=== PATIENT | male | born 1990 | race Caucasian/White ===

== ENCOUNTER 2018-12-16 00:25 | Emergency (ER) | payer MEDICAID, OTHER ==
[~2018-12-16] VITALS: Ht 180.3 cm; Wt 61.0 kg
[2018-12-16 00:31] VITALS: BP 133/87
[2018-12-16] MEDS ORDERED: PENI250T2 PO (00:39)
[2018-12-16] MEDS ORDERED: NAPR-56 PO (00:39)
== END 2018-12-16 00:49 | disposition home or self-care (01) ==
LOC: ER 00:25
DX: K00.7 Teething syndrome (principal); K08.89 Other specified disorders of teeth and supporting structures; Z79.899 Other long term (current) drug therapy
CPT/HCPCS: 99283

== ENCOUNTER 2019-03-28 05:40 | Emergency (ER) | payer MEDICAID, OTHER ==
[~2019-03-28] VITALS: Ht 180.3 cm; Wt 60.2 kg
[2019-03-28] MEDS ORDERED: acetaminophen 325mg tablet PO ONE (05:55)
[2019-03-28] MEDS ORDERED: normal saline 1000ML IV soln IV ONE (06:00)
[2019-03-28] MEDS ORDERED: ketorolac tromethamine 15mg/ml inj. IV ONE (06:20)
[2019-03-28] MEDS ORDERED: acetaminophen w/codeine (30MG) #3 tablet PO ONE (06:20)
[2019-03-28 07:33] LABS: BASOPHILS # (AUTO) 0.1 X10'3 (0-0.2); BASOPHILS % (AUTO) 0.6 % (0-1); EOSINOPHILS % (AUTO) 0.1 % (0-6); HEMATOCRIT 48.9 % (42.0-52.0); HEMOGLOBIN 17.2 g/dl (14.0-17.9); LYMPHOCYTES # (AUTO) 0.8 X10'3 (1.1-4.8); LYMPHOCYTES % (AUTO) 7.7 % (21-51); MEAN CORPUSCULAR HEMOGLOBIN 35.5 PG (27.0-31.0); MEAN CORPUSCULAR HGB CONC 35.2 g/dL (33.0-36.5); MEAN PLATELET VOLUME 8.4 FL (7.4-10.4); MONOCYTES # (AUTO) 1.1 X10'3 (0-0.9); MONOCYTES % (AUTO) 10.9 % (2-12); NEUTROPHILS # (AUTO) 7.9 X10'3 (1.8-7.7); NEUTROPHILS % (AUTO) 80.7 % (42-75); PLATELET COUNT 157 X10'3 (140-440); RED BLOOD COUNT 4.84 X10'6 (4.70-6.10); RED CELL DISTRIBUTION WIDTH 12.2 % (11.5-14.5); WHITE BLOOD COUNT 9.8 X10'3 (4.5-11.0)
[2019-03-28 07:35] LABS: CLARITY,URINE CLEAR (Clear); GLUCOSE, URINE NEGATIVE (Neg); KETONES,URINE 15 mg/dl (Neg); LEUKOCYTE ESTERASE ,URINE NEGATIVE (Neg); NITRITES, URINE NEGATIVE (Neg); OCCULT BLOOD,URINE NEGATIVE (Neg); PROTEIN,URINE TRACE mg/dl (Neg)
[2019-03-28 07:36] LABS: COLOR,URINE DARK YELLOW (Yellow); UA COLLECTION TYPE URINAL
[2019-03-28 07:41] LABS: AMORPHOUS URATES 1+; BACTERIA,URINE NONE SEEN /HPF (Neg); FINE GRANULAR CAST 0-3 /LPF (NEGATIVE); HYALINE CASTS 0-3 /LPF (NEGATIVE); MUCUS STRANDS MODERATE /LPF (Neg); RBC,URINE 0-2 /HPF (0-2); SQUAMOUS EPITHELIAL CELL,UR FEW /LPF (FEW); WBC,URINE 0-4 /HPF (0-4)
[2019-03-28 07:48] LABS: ALANINE AMINOTRANSFERASE 22 U/L (12-78); ALBUMIN 3.8 G/DL (3.4-5.0); ALBUMIN/GLOBULIN RATIO 1.1 (1.1-1.5); ALKALINE PHOSPHATASE 82 IU/L (46-116); ANION GAP 6 (8-16); ASPARTATE AMINO TRANSFERASE 21 U/L (10-37); BILIRUBIN,TOTAL 0.8 MG/DL (0.1-1.0); BLOOD UREA NITROGEN 11 MG/DL (7-18); BUN/CREATININE RATIO 10.8 (5.4-32.0); CALCIUM 8.5 MG/DL (8.5-10.1); CHLORIDE 100 MMOL/L (99-107); CREATININE 1.02 MG/DL (0.60-1.10); GLUCOSE 86 MG/DL (70-104); MAGNESIUM 1.8 MG/DL (1.5-2.4); SODIUM 136 MMOL/L (135-145); TOTAL CARBON DIOXIDE 29.8 MMOL/L (24-32); TOTAL PROTEIN 7.2 G/DL (6.4-8.2); eGFR 87 ML/MIN
[2019-03-28 07:50] LABS: POTASSIUM 4.2 MMOL/L (3.5-5.1)
[2019-03-28 07:56] LABS: URINE AMPHETAMINE SCREEN POSITIVE (Neg); URINE BARBITUATE SCREEN NEGATIVE (Neg); URINE BENZODIAZEPINES SCREEN NEGATIVE (Neg); URINE CANNABINOID SCREEN NEGATIVE (Neg); URINE COCAINE SCREEN NEGATIVE (Neg); URINE METHADONE SCREEN NEGATIVE (Neg); URINE OPIATE SCREEN NEGATIVE (Neg); URINE PHENCYCLIDINE SCREEN NEGATIVE (Neg)
[2019-03-28] MEDS ORDERED: normal saline 1000ml 1,000 ML IV ONE (08:50)
[2019-03-28 09:06] VITALS: BP 109/58
--- NOTE | 2019-03-28 09:07 | NUR ---
pt. refused to have flu swab done, aware.
== END 2019-03-28 09:07 | disposition home or self-care (01) ==
LOC: ER 05:41
DX: R50.9 Fever, unspecified (principal); B97.89 Other viral agents as the cause of diseases classified elsewhere; F17.200 Nicotine dependence, unspecified, uncomplicated; F15.10 Other stimulant abuse, uncomplicated; R41.0 Disorientation, unspecified; Z98.890 Other specified postprocedural states
CPT/HCPCS: 36415; 71046; 80053; 80305; 81001; 83735; 85025; 87081; 87880; 96361; 96374; 99284; J1885; J7030; J7040

== ENCOUNTER 2019-12-13 09:58 | Emergency (ER) | payer MEDICAID ==
--- NOTE | 2019-12-13 10:29 | NUR ---
Patient's rectal area not seen at this time. Will assess with MD at bedside.
[2019-12-13] MEDS ORDERED: aspirin 81mg tab.chew PO ONE (10:45)
[2019-12-13] MEDS ORDERED: LORazepam 2 mg/ml vial IV ONE (10:45)
[2019-12-13 11:18] LABS: BASOPHILS # (AUTO) 0.1 X10'3 (0-0.2); BASOPHILS % (AUTO) 1.2 % (0-1); EOSINOPHILS # (AUTO) 0.1 X10'3 (0-0.9); EOSINOPHILS % (AUTO) 2.1 % (0-6); HEMATOCRIT 46.1 % (42.0-52.0); HEMOGLOBIN 15.9 g/dl (14.0-17.9); LYMPHOCYTES # (AUTO) 1.5 X10'3 (1.1-4.8); LYMPHOCYTES % (AUTO) 23.9 % (21-51); MEAN CORPUSCULAR HEMOGLOBIN 34.9 PG (27.0-31.0); MEAN CORPUSCULAR HGB CONC 34.6 g/dL (33.0-36.5); MEAN PLATELET VOLUME 7.7 FL (7.4-10.4); MONOCYTES # (AUTO) 0.4 X10'3 (0-0.9); MONOCYTES % (AUTO) 6.1 % (2-12); NEUTROPHILS # (AUTO) 4.1 X10'3 (1.8-7.7); NEUTROPHILS % (AUTO) 66.7 % (42-75); PLATELET COUNT 191 X10'3 (140-440); RED BLOOD COUNT 4.56 X10'6 (4.70-6.10); WHITE BLOOD COUNT 6.1 X10'3 (4.5-11.0)
[2019-12-13 11:26] LABS: PARTIAL THROMBOPLASTIN TIME 27 SECONDS (22-32)
[2019-12-13 11:28] LABS: ALANINE AMINOTRANSFERASE 19 U/L (12-78); ALBUMIN 3.8 G/DL (3.4-5.0); ALBUMIN/GLOBULIN RATIO 1.2 (1.1-1.5); ALKALINE PHOSPHATASE 72 IU/L (46-116); ANION GAP 6 (8-16); ASPARTATE AMINO TRANSFERASE 16 U/L (10-37); BILIRUBIN,TOTAL 0.6 MG/DL (0.1-1.0); BLOOD UREA NITROGEN 10 MG/DL (7-18); BUN/CREATININE RATIO 10.9 (5.4-32.0); CALCIUM 8.1 MG/DL (8.5-10.1); CHLORIDE 103 MMOL/L (99-107); CREATININE 0.92 MG/DL (0.60-1.10); GLUCOSE 108 MG/DL (70-104); POTASSIUM 3.6 MMOL/L (3.5-5.1); SODIUM 139 MMOL/L (135-145); TOTAL CARBON DIOXIDE 29.7 MMOL/L (24-32); TOTAL PROTEIN 6.9 G/DL (6.4-8.2); eGFR > 90 ML/MIN
[2019-12-13 11:35] LABS: MAGNESIUM 1.9 MG/DL (1.5-2.4)
[2019-12-13] MEDS ORDERED: HYDR25SU32 RC (11:38)
[2019-12-13] MEDS ORDERED: POLY17PO10 PO (11:38)
[2019-12-13 13:26] VITALS: BP 120/80
== END 2019-12-13 13:28 | disposition home or self-care (01) ==
LOC: ER 09:59
DX: K64.4 Residual hemorrhoidal skin tags (principal); K59.00 Constipation, unspecified; R42 Dizziness and giddiness; R07.89 Other chest pain; F15.90 Other stimulant use, unspecified, uncomplicated; Z98.890 Other specified postprocedural states; Z79.899 Other long term (current) drug therapy
CPT/HCPCS: 36415; 71045; 80053; 83735; 83880; 84484; 85025; 85610; 85730; 93005; 96374; 99285; J2060

== ENCOUNTER 2020-01-04 16:34 | Emergency (ER) | payer MEDICAID ==
[~2020-01-04] VITALS: Ht 180.3 cm; Wt 64.8 kg
[~2020-01-04 16:34] MED LIST: HYDR25SU32 RC; POLY17PO10 PO
[2020-01-04 17:11] LABS: BASOPHILS # (AUTO) 0.1 X10'3 (0-0.2); BASOPHILS % (AUTO) 0.8 % (0-1); EOSINOPHILS # (AUTO) 0.1 X10'3 (0-0.9); EOSINOPHILS % (AUTO) 1.5 % (0-6); HEMATOCRIT 47.4 % (42.0-52.0); HEMOGLOBIN 16.8 g/dl (14.0-17.9); LYMPHOCYTES # (AUTO) 1.6 X10'3 (1.1-4.8); LYMPHOCYTES % (AUTO) 20.8 % (21-51); MEAN CORPUSCULAR HEMOGLOBIN 35.4 PG (27.0-31.0); MEAN CORPUSCULAR HGB CONC 35.5 g/dL (33.0-36.5); MEAN CORPUSCULAR VOLUME 99.8 FL (78-98); MEAN PLATELET VOLUME 7.7 FL (7.4-10.4); MONOCYTES # (AUTO) 0.6 X10'3 (0-0.9); MONOCYTES % (AUTO) 8.4 % (2-12); NEUTROPHILS # (AUTO) 5.3 X10'3 (1.8-7.7); NEUTROPHILS % (AUTO) 68.5 % (42-75); PLATELET COUNT 222 X10'3 (140-440); RED BLOOD COUNT 4.75 X10'6 (4.70-6.10); RED CELL DISTRIBUTION WIDTH 12.7 % (11.5-14.5); WHITE BLOOD COUNT 7.7 X10'3 (4.5-11.0)
[2020-01-04 17:27] LABS: ALANINE AMINOTRANSFERASE 70 U/L (12-78); ALBUMIN 4.2 G/DL (3.4-5.0); ALBUMIN/GLOBULIN RATIO 1.2 (1.1-1.5); ALKALINE PHOSPHATASE 71 IU/L (46-116); ANION GAP 9 (8-16); ASPARTATE AMINO TRANSFERASE 27 U/L (10-37); BILIRUBIN,TOTAL 1.1 MG/DL (0.1-1.0); BLOOD UREA NITROGEN 12 MG/DL (7-18); BUN/CREATININE RATIO 13.6 (5.4-32.0); CALCIUM 8.9 MG/DL (8.5-10.1); CHLORIDE 101 MMOL/L (99-107); CREATININE 0.88 MG/DL (0.60-1.10); GLUCOSE 108 MG/DL (70-104); POTASSIUM 3.7 MMOL/L (3.5-5.1); SODIUM 140 MMOL/L (135-145); TOTAL CARBON DIOXIDE 30.4 MMOL/L (24-32); TOTAL PROTEIN 7.7 G/DL (6.4-8.2); eGFR > 90 ML/MIN
[2020-01-04 18:54] LABS: ETHANOL < 0.010 GM/DL (0.0-0.010)
[2020-01-04 18:56] LABS: PARTIAL THROMBOPLASTIN TIME 28 SECONDS (22-32)
[2020-01-04 19:00] LABS: URINE AMPHETAMINE SCREEN POSITIVE (Neg); URINE BARBITUATE SCREEN NEGATIVE (Neg); URINE BENZODIAZEPINES SCREEN NEGATIVE (Neg); URINE CANNABINOID SCREEN NEGATIVE (Neg); URINE COCAINE SCREEN NEGATIVE (Neg); URINE METHADONE SCREEN NEGATIVE (Neg); URINE OPIATE SCREEN NEGATIVE (Neg); URINE PHENCYCLIDINE SCREEN NEGATIVE (Neg)
[2020-01-04] MEDS ORDERED: diazepam 5mg tablet PO ONE (19:45)
[2020-01-04] MEDS ORDERED: aspirin 81mg tab.chew PO ONE (19:45)
[2020-01-04 19:55] VITALS: BP 138/92
== END 2020-01-04 19:57 | disposition home or self-care (01) ==
LOC: ER 16:35
DX: R07.89 Other chest pain (principal); R53.83 Other fatigue; R61 Generalized hyperhidrosis; E86.0 Dehydration; F15.10 Other stimulant abuse, uncomplicated; Z98.890 Other specified postprocedural states; Z79.899 Other long term (current) drug therapy
CPT/HCPCS: 36415; 71045; 80053; 80305; 80320; 83735; 83880; 84484; 85025; 85610; 85730; 93005; 99285

== ENCOUNTER 2020-01-13 14:16 | Emergency (ER) | payer MEDICAID ==
[~2020-01-13] VITALS: Ht 180.3 cm; Wt 61.4 kg
[2020-01-13 14:35] VITALS: BP 117/77
== END 2020-01-13 15:02 | disposition home or self-care (01) ==
LOC: ER 14:16
DX: J06.9 Acute upper respiratory infection, unspecified (principal); Z20.828 Contact with and (suspected) exposure to other viral communicable diseases; F15.90 Other stimulant use, unspecified, uncomplicated; Z79.899 Other long term (current) drug therapy
CPT/HCPCS: 36415; 87635; 99283

== ENCOUNTER 2020-01-15 02:57 | Emergency (ER) | payer MEDICAID ==
[~2020-01-15] VITALS: Ht 180.3 cm; Wt 61.4 kg
[~2020-01-15 02:57] MED LIST changes: -POLY17PO10 PO
[2020-01-15 03:15] VITALS: BP 127/76
[2020-01-16] MEDS ORDERED: PRED20TA PO (17:49)
[2020-01-16] MEDS ORDERED: CEPH250T PO (17:50)
== END 2020-01-15 03:35 | disposition home or self-care (01) ==
LOC: ER 02:57
DX: R11.0 Nausea (principal); R10.84 Generalized abdominal pain; F17.200 Nicotine dependence, unspecified, uncomplicated; F15.90 Other stimulant use, unspecified, uncomplicated; Z98.890 Other specified postprocedural states; Z79.899 Other long term (current) drug therapy
CPT/HCPCS: 99281

== ENCOUNTER 2020-01-16 17:18 | Emergency (ER) | payer MEDICAID ==
[~2020-01-16] VITALS: Ht 180.3 cm; Wt 65.0 kg
[2020-01-16] MEDS ORDERED: PRED20TA PO (17:49)
[2020-01-16] MEDS ORDERED: CEPH250T PO (17:50)
[2020-01-16 18:03] VITALS: BP 115/81
== END 2020-01-16 18:05 | disposition home or self-care (01) ==
LOC: ER 17:18
DX: S50.861A Insect bite (nonvenomous) of right forearm, initial encounter (principal); L03.113 Cellulitis of right upper limb; F15.90 Other stimulant use, unspecified, uncomplicated; Z98.890 Other specified postprocedural states; Z79.2 Long term (current) use of antibiotics; Z79.899 Other long term (current) drug therapy; W57.XXXA Bitten or stung by nonvenomous insect and other nonvenomous arthropods, initial encounter; Y93.89 Activity, other specified; Y92.89 Other specified places as the place of occurrence of the external cause; Y99.8 Other external cause status
CPT/HCPCS: 99283

== ENCOUNTER → 2020-01-18 | Emergency (ER) | payer MEDICAID ==
[~2020-01-18] MED LIST changes: +CEPH250T PO; +PRED20TA PO
--- NOTE | 2020-01-18 17:43 | NUR ---
Called to triage not in lobby
--- NOTE | 2020-01-18 18:07 | NUR ---
CALLED TO TRIAGE FOR THIRD TIME, NOT IN LOBBY.
== END | disposition left against medical advice (07) ==
LOC: ER 16:57
DX: Z00.00 Encounter for general adult medical examination without abnormal findings (principal); Z53.21 Procedure and treatment not carried out due to patient leaving prior to being seen by health care provider

== ENCOUNTER 2020-02-03 12:50 | Emergency (ER) | payer MEDICAID ==
[~2020-02-03] VITALS: Ht 180.3 cm; Wt 65.5 kg
[~2020-02-03 12:50] MED LIST changes: -CEPH250T PO; -PRED20TA PO
[2020-02-03 13:02] VITALS: BP 108/67
== END 2020-02-03 17:24 | disposition left against medical advice (07) ==
LOC: ER 12:51
DX: M54.5 Low back pain (principal); Z53.21 Procedure and treatment not carried out due to patient leaving prior to being seen by health care provider

== ENCOUNTER 2020-02-09 15:38 | Emergency (ER) | payer MEDICAID ==
[~2020-02-09] VITALS: Ht 180.3 cm; Wt 68.1 kg
--- NOTE | 2020-02-09 16:45 | NUR ---
Patient states he is hearing voices and they are telling him to hurt himself. Patient answering all questions. No distress observed. Continue to monitor.
[2020-02-09 16:59] LABS: BASOPHILS % (AUTO) 0.4 % (0-1); EOSINOPHILS # (AUTO) 0.1 X10'3 (0-0.9); EOSINOPHILS % (AUTO) 1.8 % (0-6); HEMATOCRIT 46.2 % (42.0-52.0); HEMOGLOBIN 15.9 g/dl (14.0-17.9); LYMPHOCYTES # (AUTO) 1.3 X10'3 (1.1-4.8); LYMPHOCYTES % (AUTO) 20.7 % (21-51); MEAN CORPUSCULAR HEMOGLOBIN 34.8 PG (27.0-31.0); MEAN CORPUSCULAR HGB CONC 34.3 g/dL (33.0-36.5); MEAN CORPUSCULAR VOLUME 101.4 FL (78-98); MONOCYTES # (AUTO) 0.5 X10'3 (0-0.9); MONOCYTES % (AUTO) 7.3 % (2-12); NEUTROPHILS # (AUTO) 4.5 X10'3 (1.8-7.7); NEUTROPHILS % (AUTO) 69.8 % (42-75); PLATELET COUNT 196 X10'3 (140-440); RED BLOOD COUNT 4.55 X10'6 (4.70-6.10); RED CELL DISTRIBUTION WIDTH 12.3 % (11.5-14.5); WHITE BLOOD COUNT 6.5 X10'3 (4.5-11.0)
[2020-02-09 17:13] LABS: ALANINE AMINOTRANSFERASE 30 U/L (12-78); ALBUMIN 3.8 G/DL (3.4-5.0); ALBUMIN/GLOBULIN RATIO 1.2 (1.1-1.5); ALKALINE PHOSPHATASE 60 IU/L (46-116); ANION GAP 8 (8-16); ASPARTATE AMINO TRANSFERASE 18 U/L (10-37); BILIRUBIN,TOTAL 0.7 MG/DL (0.1-1.0); BLOOD UREA NITROGEN 11 MG/DL (7-18); BUN/CREATININE RATIO 14.5 (5.4-32.0); CALCIUM 8.8 MG/DL (8.5-10.1); CHLORIDE 105 MMOL/L (99-107); CREATININE 0.76 MG/DL (0.60-1.10); GLUCOSE 101 MG/DL (70-104); POTASSIUM 3.7 MMOL/L (3.5-5.1); SODIUM 142 MMOL/L (135-145); TOTAL CARBON DIOXIDE 29.4 MMOL/L (24-32); eGFR > 90 ML/MIN
[2020-02-09 17:23] LABS: ETHANOL < 0.010 GM/DL (0.0-0.010)
[2020-02-09] MEDS ORDERED: LORazepam 1 MG tablet PO PRN (17:30)
--- NOTE | 2020-02-09 17:40 | NUR ---
Patient sitting in bed and having some anxiety. RN called Dr Antonio who will order Ativan.
[2020-02-09 17:50] LABS: CLARITY,URINE CLOUDY (Clear); COLOR,URINE STRAW (Yellow); GLUCOSE, URINE NEGATIVE (Neg); KETONES,URINE NEGATIVE (Neg); LEUKOCYTE ESTERASE ,URINE TRACE (Neg); NITRITES, URINE NEGATIVE (Neg); OCCULT BLOOD,URINE NEGATIVE (Neg); PROTEIN,URINE NEGATIVE (Neg); UROBILINOGEN,URINE 0.2 E.U/dL (0.2-1.0)
[2020-02-09 17:52] LABS: UA COLLECTION TYPE CLN CATCH MIDSTREAM
[2020-02-09 17:59] LABS: URINE AMPHETAMINE SCREEN NEGATIVE (Neg); URINE BARBITUATE SCREEN NEGATIVE (Neg); URINE BENZODIAZEPINES SCREEN NEGATIVE (Neg); URINE CANNABINOID SCREEN NEGATIVE (Neg); URINE COCAINE SCREEN NEGATIVE (Neg); URINE METHADONE SCREEN NEGATIVE (Neg); URINE OPIATE SCREEN NEGATIVE (Neg); URINE PHENCYCLIDINE SCREEN NEGATIVE (Neg)
[2020-02-09 18:20] LABS: MUCUS STRANDS MANY /LPF (Neg); SQUAMOUS EPITHELIAL CELL,UR FEW /LPF (FEW); WBC,URINE 0-4 /HPF (0-4)
[2020-02-09 18:21] LABS: RBC,URINE 0-2 /HPF (0-2)
[2020-02-09 18:22] LABS: AMORPHOUS PHOSPHATES 4+; BACTERIA,URINE NONE SEEN /HPF (Neg)
--- NOTE | 2020-02-09 20:30 | NUR ---
Pt's packet faxed to [facility].
[2020-02-09] MEDS ORDERED: NO HOME MEDS (20:47)
--- NOTE | 2020-02-09 22:01 | NUR ---
Pt is resting comfortably at this time, sleeping with visible rise and fall of respirations. He is in direct line of sight of the nursing station, no sign of distress or pain at this time.
--- NOTE | 2020-02-09 23:38 | NUR ---
Pt is sleeping at this time, in direct line of sight of the nursing station. Does not show signs of pain or discomfort.
--- NOTE | 2020-02-09 23:50 | NUR ---
Spoke to Camila from [facility] and completed preliminary questionaire. Camila reports she will present the patient's case for consideration of admission in the morning and notify [facility] overflow if patient is accepted.
[2020-02-10 06:16] VITALS: BP 108/67
--- NOTE | 2020-02-10 06:24 | NUR ---
Patient sleeping on right side. No distress observed. Continue to monitor.
--- NOTE | 2020-02-10 08:15 | NUR ---
Patient sitting up and eating breakfast. no distress observed. Continue to monitor.
--- NOTE | 2020-02-10 10:55 | NUR ---
Patient's peer next to him got loud. Patient came out of his room anxious and states he is ready to go home. "I'm not crazy." RN explained to patient that he is on a legal hold and can't leave at this time. RN offered patient some Ativan. Patient intially refused but eventually said he would take it with food, which he did. Continue to monitor.
--- NOTE | 2020-02-10 11:25 | NUR ---
breaking primary RN, pt is in the bathroom, no needs at this time
--- NOTE | 2020-02-10 12:53 | NUR ---
Patient reclining in bed. Patient is about to leave to [facility] after lunch. Continue to monitor.
== END 2020-02-10 13:35 ==
LOC: ER 15:39
DX: R45.851 Suicidal ideations (principal); F29 Unspecified psychosis not due to a substance or known physiological condition; R11.0 Nausea; F15.90 Other stimulant use, unspecified, uncomplicated; Z79.899 Other long term (current) drug therapy
CPT/HCPCS: 36415; 80053; 80305; 80320; 81001; 84443; 85025; 99285

== ENCOUNTER 2020-03-07 12:22 | Emergency (ER) | payer MEDICAID ==
[~2020-03-07] VITALS: Ht 180.3 cm; Wt 70.0 kg
[~2020-03-07 12:22] MED LIST changes: -HYDR25SU32 RC; +NO HOME MEDS
[2020-03-07 12:48] VITALS: BP 135/81
[2020-03-07 13:14] LABS: CLARITY,URINE CLOUDY (Clear); GLUCOSE, URINE NEGATIVE (Neg); KETONES,URINE NEGATIVE (Neg); LEUKOCYTE ESTERASE ,URINE NEGATIVE (Neg); NITRITES, URINE NEGATIVE (Neg); OCCULT BLOOD,URINE NEGATIVE (Neg); PH,URINE 7.5 (4.8-8.0); PROTEIN,URINE NEGATIVE (Neg)
[2020-03-07 13:15] LABS: COLOR,URINE DARK YELLOW (Yellow); UA COLLECTION TYPE CLN CATCH MIDSTREAM
[2020-03-07 13:23] LABS: BACTERIA,URINE NONE SEEN /HPF (Neg); RBC,URINE NONE SEEN /HPF (0-2); WBC,URINE 0-4 /HPF (0-4)
[2020-03-07 13:24] LABS: AMORPHOUS PHOSPHATES 4+; MUCUS STRANDS MODERATE /LPF (Neg); SQUAMOUS EPITHELIAL CELL,UR NONE SEEN /LPF (FEW)
[2020-03-07 13:38] LABS: BASOPHILS % (AUTO) 0.7 % (0-1); EOSINOPHILS # (AUTO) 0.1 X10'3 (0-0.9); EOSINOPHILS % (AUTO) 2.9 % (0-6); HEMATOCRIT 47.4 % (42.0-52.0); HEMOGLOBIN 16.5 g/dl (14.0-17.9); LYMPHOCYTES # (AUTO) 1.3 X10'3 (1.1-4.8); LYMPHOCYTES % (AUTO) 28.2 % (21-51); MEAN CORPUSCULAR HEMOGLOBIN 35.2 PG (27.0-31.0); MEAN CORPUSCULAR HGB CONC 34.7 g/dL (33.0-36.5); MEAN CORPUSCULAR VOLUME 101.2 FL (78-98); MEAN PLATELET VOLUME 8.1 FL (7.4-10.4); MONOCYTES # (AUTO) 0.4 X10'3 (0-0.9); MONOCYTES % (AUTO) 8.1 % (2-12); NEUTROPHILS # (AUTO) 2.8 X10'3 (1.8-7.7); NEUTROPHILS % (AUTO) 60.1 % (42-75); PLATELET COUNT 194 X10'3 (140-440); RED BLOOD COUNT 4.68 X10'6 (4.70-6.10); RED CELL DISTRIBUTION WIDTH 12.2 % (11.5-14.5); WHITE BLOOD COUNT 4.7 X10'3 (4.5-11.0)
[2020-03-07 13:48] LABS: ALANINE AMINOTRANSFERASE 35 U/L (12-78); ALBUMIN 3.9 G/DL (3.4-5.0); ALBUMIN/GLOBULIN RATIO 1.2 (1.1-1.5); ALKALINE PHOSPHATASE 65 IU/L (46-116); ANION GAP 0 (8-16); ASPARTATE AMINO TRANSFERASE 22 U/L (10-37); BILIRUBIN,TOTAL 0.9 MG/DL (0.1-1.0); BLOOD UREA NITROGEN 12 MG/DL (7-18); BUN/CREATININE RATIO 13.6 (5.4-32.0); CALCIUM 9.2 MG/DL (8.5-10.1); CHLORIDE 108 MMOL/L (99-107); CREATININE 0.88 MG/DL (0.60-1.10); GLUCOSE 98 MG/DL (70-104); POTASSIUM 4.1 MMOL/L (3.5-5.1); SODIUM 140 MMOL/L (135-145); TOTAL CARBON DIOXIDE 31.8 MMOL/L (24-32); TOTAL PROTEIN 7.1 G/DL (6.4-8.2); eGFR > 90 ML/MIN
== END 2020-03-07 14:07 | disposition home or self-care (01) ==
LOC: ER 12:23
DX: R10.32 Left lower quadrant pain (principal); R19.7 Diarrhea, unspecified; R11.0 Nausea; F15.90 Other stimulant use, unspecified, uncomplicated; Z98.890 Other specified postprocedural states
CPT/HCPCS: 36415; 80053; 81001; 85025; 99283

== ENCOUNTER 2020-03-25 17:34 | Emergency (ER) | payer MEDICAID ==
[~2020-03-25] VITALS: Ht 180.3 cm; Wt 68.5 kg
[2020-03-25 17:38] VITALS: BP 124/52
[2020-03-25] MEDS ORDERED: ESCI5TAB PO (23:11)
[2020-03-26] MEDS ORDERED: NO HOME MEDS (22:39)
== END 2020-03-25 19:56 | disposition home or self-care (01) ==
LOC: ER 17:35
DX: F41.9 Anxiety disorder, unspecified (principal); F32.9 Major depressive disorder, single episode, unspecified; F17.200 Nicotine dependence, unspecified, uncomplicated; F15.10 Other stimulant abuse, uncomplicated; Z87.19 Personal history of other diseases of the digestive system
CPT/HCPCS: 99281

== ENCOUNTER 2020-03-25 22:17 | Emergency (ER) | payer MEDICAID ==
[~2020-03-25] VITALS: Ht 180.3 cm; Wt 68.0 kg
--- NOTE | 2020-03-25 22:56 | NUR ---
AT TIME OF TRIAGE PT WAS QUESTIONED ABOUT WEAPONS AND ADMITTED TO HAVE A KNIFE. SECURITY WAS CALLED AND LOCKED IT UP AND PT IS AWARE THAT IT WILL BE RETURNED WHEN HE IS DISCHARGED. PT IS COOPERATIVE
[2020-03-25] MEDS ORDERED: ESCI5TAB PO (23:11)
[2020-03-25 23:20] LABS: BASOPHILS # (AUTO) 0.1 X10'3 (0-0.2); BASOPHILS % (AUTO) 0.6 % (0-1); EOSINOPHILS # (AUTO) 0.2 X10'3 (0-0.9); EOSINOPHILS % (AUTO) 2.2 % (0-6); HEMATOCRIT 47.1 % (42.0-52.0); HEMOGLOBIN 16.4 g/dl (14.0-17.9); LYMPHOCYTES % (AUTO) 23.2 % (21-51); MEAN CORPUSCULAR HEMOGLOBIN 35.1 PG (27.0-31.0); MEAN CORPUSCULAR HGB CONC 34.8 g/dL (33.0-36.5); MEAN CORPUSCULAR VOLUME 100.7 FL (78-98); MEAN PLATELET VOLUME 8.4 FL (7.4-10.4); MONOCYTES # (AUTO) 0.6 X10'3 (0-0.9); NEUTROPHILS # (AUTO) 5.8 X10'3 (1.8-7.7); PLATELET COUNT 182 X10'3 (140-440); RED BLOOD COUNT 4.67 X10'6 (4.70-6.10); RED CELL DISTRIBUTION WIDTH 12.2 % (11.5-14.5); WHITE BLOOD COUNT 8.7 X10'3 (4.5-11.0)
[2020-03-25 23:29] LABS: ALANINE AMINOTRANSFERASE 44 U/L (12-78); ALBUMIN/GLOBULIN RATIO 1.3 (1.1-1.5); ALKALINE PHOSPHATASE 67 IU/L (46-116); ANION GAP 9 (8-16); ASPARTATE AMINO TRANSFERASE 24 U/L (10-37); BILIRUBIN,TOTAL 0.7 MG/DL (0.1-1.0); BLOOD UREA NITROGEN 10 MG/DL (7-18); BUN/CREATININE RATIO 12.5 (5.4-32.0); CALCIUM 8.4 MG/DL (8.5-10.1); CHLORIDE 104 MMOL/L (99-107); ETHANOL < 0.010 GM/DL (0.0-0.010); GLUCOSE 113 MG/DL (70-104); POTASSIUM 3.4 MMOL/L (3.5-5.1); SODIUM 140 MMOL/L (135-145); TOTAL CARBON DIOXIDE 27.2 MMOL/L (24-32); TOTAL PROTEIN 7.1 G/DL (6.4-8.2); eGFR > 90 ML/MIN
[2020-03-25 23:30] LABS: URINE AMPHETAMINE SCREEN NEGATIVE (Neg); URINE BARBITUATE SCREEN NEGATIVE (Neg); URINE BENZODIAZEPINES SCREEN NEGATIVE (Neg); URINE CANNABINOID SCREEN NEGATIVE (Neg); URINE COCAINE SCREEN NEGATIVE (Neg); URINE METHADONE SCREEN NEGATIVE (Neg); URINE OPIATE SCREEN NEGATIVE (Neg); URINE PHENCYCLIDINE SCREEN NEGATIVE (Neg)
--- NOTE | 2020-03-26 | NUR ---
Pt is resting in his bed and appears to be asleep.
--- NOTE | 2020-03-26 01:00 | NUR ---
No change. Still asleep, he has just moved positions.
--- NOTE | 2020-03-26 02:00 | NUR ---
No change, still asleep.
--- NOTE | 2020-03-26 03:00 | NUR ---
no change, still asleep.
--- NOTE | 2020-03-26 05:55 | NUR ---
no changes. still asleep
[2020-03-26 06:45] VITALS: BP 104/62
[2020-03-26] MEDS ORDERED: ESCITALOPRAM OXALATE 5 MG TABLET PO SCH (08:00)
--- NOTE | 2020-03-26 09:58 | NUR ---
PT IS SITTING UP EATING BREAKFAST. FOLLOWING COMMANDS, COOPERATIVE, AND ANSWERING QUESTIONS.
[2020-03-26] MEDS ORDERED: NO HOME MEDS (22:39)
== END 2020-03-26 10:36 | disposition home or self-care (01) ==
LOC: ER 22:19
DX: R45.851 Suicidal ideations (principal); F20.9 Schizophrenia, unspecified; R20.0 Anesthesia of skin; R53.1 Weakness; F32.9 Major depressive disorder, single episode, unspecified; F15.90 Other stimulant use, unspecified, uncomplicated; Z98.890 Other specified postprocedural states; Z72.89 Other problems related to lifestyle; Z79.899 Other long term (current) drug therapy
CPT/HCPCS: 36415; 80053; 80305; 80320; 85025; 99284; 99285

== ENCOUNTER 2020-03-26 19:15 | Emergency (ER) | payer MEDICAID ==
[~2020-03-26] VITALS: Ht 172.7 cm; Wt 53.0 kg
[~2020-03-26 19:15] MED LIST changes: +ESCI5TAB PO
[2020-03-26] MEDS ORDERED: ondansetron 4mg rapidly disintigrating tab PO ONE (19:30)
[2020-03-26] MEDS ORDERED: acetaminophen 325mg tablet PO ONE (19:30)
--- NOTE | 2020-03-26 21:09 | NUR ---
pt in bed with covers pulled over head
--- NOTE | 2020-03-26 22:32 | NUR ---
EYES CLOSED RESPIRATIONS EVEN IN BED
[2020-03-26] MEDS ORDERED: NO HOME MEDS (22:39)
--- NOTE | 2020-03-27 01:53 | NUR ---
PT SLEEPING. NO DISTRESS NOTED. WILL CONTINUE TO MONITOR.
--- NOTE | 2020-03-27 03:55 | NUR ---
PT SLEEPING. NO DISTRESS NOTED. WILL CONTINUE TO MONITOR.
--- NOTE | 2020-03-27 09:15 | NUR ---
Pt's thought processes becoming more disturbed AEB his statements "Theyr're out to get me, I can't protect myself aopr my family. Quick, you have to help. They're out there waiting to get me." This change is notable as pt engaged readily and responded appropriately while psychosocial components assessed by this RN about an hour ago. Pt affirmed at that time he hears voices, but they are not currently threatening him or causing distress. Pt denies S/H/I @ this time. Pt reports last meth use "couple months ago. He has social support from mother and grandmother, but is not welcome to live with either of them. Currently he is homeless, couch surfing and staying at the [facility] when able.
[2020-03-27] MEDS ORDERED: LORazepam 1 MG tablet PO ONE (09:20)
[2020-03-27] MEDS: ziprasidone 20mg capsule PO SCH ×2 (09:31→20:21)
--- NOTE | 2020-03-27 14:16 | NUR ---
Vasyl tried to evaluate pt but the pt is too drowsy to have a conversation. informed him that the pt was given Geodon and Ativan about 4 hours ago and he said he will try his evaluation later when the pt is more awake.
--- NOTE | 2020-03-27 15:28 | NUR ---
PT BROUGHT OVER TO ROOM 14 CARRYING HIS LUNCH TRAY. PT EATING NOW ON HIS BED 21. LAB IN TO DRAW HIS BLOOD.
[2020-03-27 15:39] LABS: BASOPHILS % (AUTO) 0.6 % (0-1); EOSINOPHILS # (AUTO) 0.2 X10'3 (0-0.9); EOSINOPHILS % (AUTO) 3.6 % (0-6); HEMATOCRIT 51.7 % (42.0-52.0); MEAN CORPUSCULAR HEMOGLOBIN 35.2 PG (27.0-31.0); MEAN CORPUSCULAR HGB CONC 34.8 g/dL (33.0-36.5); MEAN CORPUSCULAR VOLUME 101.3 FL (78-98); MEAN PLATELET VOLUME 8.3 FL (7.4-10.4); MONOCYTES # (AUTO) 0.4 X10'3 (0-0.9); MONOCYTES % (AUTO) 7.1 % (2-12); NEUTROPHILS % (AUTO) 52.7 % (42-75); PLATELET COUNT 200 X10'3 (140-440); RED BLOOD COUNT 5.11 X10'6 (4.70-6.10); RED CELL DISTRIBUTION WIDTH 12.2 % (11.5-14.5); WHITE BLOOD COUNT 5.7 X10'3 (4.5-11.0)
[2020-03-27 15:53] LABS: ALANINE AMINOTRANSFERASE 49 U/L (12-78); ALBUMIN 4.1 G/DL (3.4-5.0); ALBUMIN/GLOBULIN RATIO 1.2 (1.1-1.5); ALKALINE PHOSPHATASE 73 IU/L (46-116); ANION GAP 6 (8-16); ASPARTATE AMINO TRANSFERASE 28 U/L (10-37); BILIRUBIN,TOTAL 1.3 MG/DL (0.1-1.0); BLOOD UREA NITROGEN 9 MG/DL (7-18); CALCIUM 9.1 MG/DL (8.5-10.1); CHLORIDE 105 MMOL/L (99-107); GLUCOSE 87 MG/DL (70-104); POTASSIUM 4.4 MMOL/L (3.5-5.1); SODIUM 143 MMOL/L (135-145); TOTAL CARBON DIOXIDE 32.5 MMOL/L (24-32); TOTAL PROTEIN 7.5 G/DL (6.4-8.2); eGFR > 90 ML/MIN
[2020-03-27 16:03] LABS: ETHANOL < 0.010 GM/DL (0.0-0.010)
[2020-03-27 17:36] LABS: CLARITY,URINE SLIGHTLY CLOUDY (Clear); GLUCOSE, URINE NEGATIVE (Neg); KETONES,URINE NEGATIVE (Neg); LEUKOCYTE ESTERASE ,URINE NEGATIVE (Neg); NITRITES, URINE NEGATIVE (Neg); OCCULT BLOOD,URINE NEGATIVE (Neg); PROTEIN,URINE NEGATIVE (Neg)
[2020-03-27 17:39] LABS: COLOR,URINE DARK YELLOW (Yellow); UA COLLECTION TYPE VOIDED
[2020-03-27 17:43] LABS: BACTERIA,URINE NONE SEEN /HPF (Neg); MUCUS STRANDS MODERATE /LPF (Neg); RBC,URINE 0-2 /HPF (0-2); SQUAMOUS EPITHELIAL CELL,UR NONE SEEN /LPF (FEW); WBC,URINE 0-4 /HPF (0-4)
[2020-03-27 17:51] LABS: URINE AMPHETAMINE SCREEN NEGATIVE (Neg); URINE BARBITUATE SCREEN NEGATIVE (Neg); URINE BENZODIAZEPINES SCREEN NEGATIVE (Neg); URINE CANNABINOID SCREEN NEGATIVE (Neg); URINE COCAINE SCREEN NEGATIVE (Neg); URINE METHADONE SCREEN NEGATIVE (Neg); URINE OPIATE SCREEN NEGATIVE (Neg); URINE PHENCYCLIDINE SCREEN NEGATIVE (Neg)
[2020-03-28] MEDS: ziprasidone 20mg capsule PO SCH (08:17)
--- NOTE | 2020-03-28 08:20 | NUR ---
UP TO BATHROOM. TOLERATED BREAKFAST WELL AND RETAINED. PATIENT WORRIED ABOUT MISSING COURT ORDERED WORK PROGRAM AND ATTEMPTING TO CONTACT [employer] TO INFORM THAT HE IS IN HOSPITAL ON MH HOLD.
[2020-03-28] MEDS ORDERED: nicotine 14mg patch - 24hr TD SCH (09:45)
[2020-03-28 09:54] LABS: BASOPHILS % (AUTO) 0.8 % (0-1); EOSINOPHILS # (AUTO) 0.1 X10'3 (0-0.9); EOSINOPHILS % (AUTO) 2.6 % (0-6); HEMATOCRIT 48.2 % (42.0-52.0); LYMPHOCYTES # (AUTO) 1.1 X10'3 (1.1-4.8); LYMPHOCYTES % (AUTO) 22.9 % (21-51); MEAN CORPUSCULAR HEMOGLOBIN 35.5 PG (27.0-31.0); MEAN CORPUSCULAR HGB CONC 35.2 g/dL (33.0-36.5); MEAN CORPUSCULAR VOLUME 100.9 FL (78-98); MEAN PLATELET VOLUME 8.1 FL (7.4-10.4); MONOCYTES # (AUTO) 0.3 X10'3 (0-0.9); MONOCYTES % (AUTO) 6.9 % (2-12); NEUTROPHILS # (AUTO) 3.3 X10'3 (1.8-7.7); NEUTROPHILS % (AUTO) 66.8 % (42-75); PLATELET COUNT 187 X10'3 (140-440); RED BLOOD COUNT 4.78 X10'6 (4.70-6.10); RED CELL DISTRIBUTION WIDTH 11.8 % (11.5-14.5)
--- NOTE | 2020-03-28 10:03 | NUR ---
RESTING IN BED. NICOTINE PATCH APPLIED. NO COMPLAINTS AT THIS TIME.
--- NOTE | 2020-03-28 12:35 | NUR ---
PATIENT SITTUNG AT SIDE OF BED EATING LUNCH
--- NOTE | 2020-03-28 17:05 | NUR ---
PT RESTING IN BED ON RIGHT SIDE. RR OF 15. NO S/S OF DISTRESS OR PAIN.
--- NOTE | 2020-03-28 19:23 | NUR ---
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 ALL OF PATIENT'S PERSONAL ITEMS WERE RETURNED TO HIM.
[2020-03-28 19:37] VITALS: BP 112/64
== END 2020-03-28 19:30 ==
LOC: ER 19:15
DX: R45.851 Suicidal ideations (principal); R20.0 Anesthesia of skin; R53.1 Weakness; F32.9 Major depressive disorder, single episode, unspecified; F20.9 Schizophrenia, unspecified; F15.90 Other stimulant use, unspecified, uncomplicated; Z98.890 Other specified postprocedural states; Z72.89 Other problems related to lifestyle
CPT/HCPCS: 36415; 80053; 80305; 80320; 81001; 84443; 85025; 99285

== ENCOUNTER 2021-03-30 13:30 | Emergency (ER) | payer MEDICAID ==
[~2021-03-30] VITALS: Ht 180.3 cm; Wt 65.9 kg
[~2021-03-30 13:30] MED LIST changes: -ESCI5TAB PO
[2021-03-30 14:43] VITALS: BP 122/74
[2021-03-30] MEDS ORDERED: LIDO20SO16 PO (17:16)
== END 2021-03-30 17:17 | disposition home or self-care (01) ==
LOC: ER 13:30
DX: K04.7 Periapical abscess without sinus (principal); K08.89 Other specified disorders of teeth and supporting structures; J02.9 Acute pharyngitis, unspecified; F20.9 Schizophrenia, unspecified; F32.9 Major depressive disorder, single episode, unspecified; F15.90 Other stimulant use, unspecified, uncomplicated; Z72.89 Other problems related to lifestyle; Z98.890 Other specified postprocedural states; Z79.899 Other long term (current) drug therapy
CPT/HCPCS: 99283

== ENCOUNTER 2021-05-09 02:42 | Emergency (ER) | payer MEDICAID ==
[~2021-05-09] VITALS: Ht 180.3 cm; Wt 63.6 kg
[~2021-05-09 02:42] MED LIST changes: +LIDO20SO16 PO
[2021-05-09 03:16] VITALS: BP 108/66
[2021-05-09] MEDS ORDERED: ondansetron 4mg rapidly disintigrating tab PO ONE (03:45)
== END 2021-05-09 04:30 | disposition home or self-care (01) ==
LOC: ER 02:42
DX: B34.9 Viral infection, unspecified (principal); M79.10 Myalgia, unspecified site; F15.90 Other stimulant use, unspecified, uncomplicated; Z20.822 Contact with and (suspected) exposure to COVID-19; Z98.890 Other specified postprocedural states
CPT/HCPCS: 36415; 99283; U0003; U0005

== ENCOUNTER 2021-11-09 11:00 | Emergency (ER) | payer MEDICAID ==
[~2021-11-09] VITALS: Ht 180.3 cm; Wt 63.6 kg
[2021-11-09 11:18] VITALS: BP 100/61
[2021-11-09 12:01] LABS: BASOPHILS % (AUTO) 0.7 % (0-1); EOSINOPHILS # (AUTO) 0.1 X10'3 (0-0.9); EOSINOPHILS % (AUTO) 3.1 % (0-6); HEMATOCRIT 49.4 % (42.0-52.0); HEMOGLOBIN 17.4 g/dl (14.0-17.9); LYMPHOCYTES # (AUTO) 1.3 X10'3 (1.1-4.8); LYMPHOCYTES % (AUTO) 27.5 % (21-51); MEAN CORPUSCULAR HEMOGLOBIN 35.3 PG (27.0-31.0); MEAN CORPUSCULAR HGB CONC 35.3 g/dL (33.0-36.5); MEAN CORPUSCULAR VOLUME 99.8 FL (78-98); MEAN PLATELET VOLUME 7.6 FL (7.4-10.4); MONOCYTES # (AUTO) 0.4 X10'3 (0-0.9); MONOCYTES % (AUTO) 8.8 % (2-12); NEUTROPHILS # (AUTO) 2.7 X10'3 (1.8-7.7); NEUTROPHILS % (AUTO) 59.9 % (42-75); PLATELET COUNT 186 X10'3 (140-440); RED BLOOD COUNT 4.95 X10'6 (4.70-6.10); RED CELL DISTRIBUTION WIDTH 12.5 % (11.5-14.5); WHITE BLOOD COUNT 4.6 X10'3 (4.5-11.0)
[2021-11-09 12:05] LABS: CLARITY,URINE CLEAR (Clear); COLOR,URINE YELLOW (Yellow); GLUCOSE, URINE NEGATIVE (Neg); KETONES,URINE NEGATIVE (Neg); LEUKOCYTE ESTERASE ,URINE NEGATIVE (Neg); NITRITES, URINE NEGATIVE (Neg); OCCULT BLOOD,URINE NEGATIVE (Neg); PROTEIN,URINE NEGATIVE (Neg)
[2021-11-09 12:07] LABS: UA COLLECTION TYPE CLN CATCH MIDSTREAM
[2021-11-09 12:13] LABS: ALANINE AMINOTRANSFERASE 36 U/L (12-78); ALBUMIN 3.8 G/DL (3.4-5.0); ALBUMIN/GLOBULIN RATIO 1.1 (1.1-1.5); ALKALINE PHOSPHATASE 68 IU/L (46-116); ANION GAP 5 (8-16); ASPARTATE AMINO TRANSFERASE 18 U/L (10-37); BILIRUBIN,TOTAL 1.4 MG/DL (0.1-1.0); BLOOD UREA NITROGEN 12 MG/DL (7-18); CHLORIDE 106 MMOL/L (99-107); CREATININE 0.86 MG/DL (0.60-1.10); GLUCOSE 106 MG/DL (70-104); LIPASE 163 U/L (73-393); POTASSIUM 4.6 MMOL/L (3.5-5.1); SODIUM 139 MMOL/L (135-145); TOTAL CARBON DIOXIDE 28.1 MMOL/L (24-32); TOTAL PROTEIN 7.2 G/DL (6.4-8.2); eGFR > 90 ML/MIN
[2021-11-09] MEDS ORDERED: LIDO30CR TOP (13:22)
[2021-11-09] MEDS ORDERED: LIDOcaine/PRILOcaine 5gm cream TP ONE (13:25)
== END 2021-11-09 13:36 | disposition home or self-care (01) ==
LOC: ER 11:01
DX: K62.89 Other specified diseases of anus and rectum (principal); F17.200 Nicotine dependence, unspecified, uncomplicated; F15.20 Other stimulant dependence, uncomplicated
CPT/HCPCS: 36415; 80053; 81003; 83690; 85025; 99283

== ENCOUNTER 2022-01-27 03:48 | Emergency (ER) | payer MEDICAID ==
[~2022-01-27] VITALS: Ht 180.3 cm; Wt 64.8 kg
[~2022-01-27 03:48] MED LIST changes: +LIDO30CR TOP
[2022-01-27 03:53] VITALS: BP 106/71
[2022-01-27] MEDS ORDERED: AMOX-117 PO (04:50)
[2022-01-27] MEDS ORDERED: ibuprofen tablet 400 MG TABLET PO ONE (04:50)
[2022-01-27] MEDS ORDERED: acetaminophen 325mg tablet PO ONE (04:50)
[2022-01-27] MEDS ORDERED: IBUP-1984 PO (04:50)
[2022-01-27] MEDS ORDERED: amox tr/potassium clavulanate 875/125mg TAB PO ONE (04:50)
== END 2022-01-27 06:36 | disposition home or self-care (01) ==
LOC: ER 03:49
DX: K04.7 Periapical abscess without sinus (principal); F20.9 Schizophrenia, unspecified; F32.A Depression, unspecified; F17.200 Nicotine dependence, unspecified, uncomplicated; F12.10 Cannabis abuse, uncomplicated; Z79.899 Other long term (current) drug therapy
CPT/HCPCS: 99284

== ENCOUNTER 2022-06-08 22:45 | Emergency (ER) | payer MEDICAID ==
[~2022-06-08] VITALS: Ht 180.3 cm; Wt 63.6 kg
[2022-06-09 04:08] VITALS: BP 121/77
[2022-06-09] MEDS ORDERED: AMOX-117 PO (04:11)
== END 2022-06-09 04:23 | disposition home or self-care (01) ==
LOC: ER 22:46
DX: K08.89 Other specified disorders of teeth and supporting structures (principal); F15.10 Other stimulant abuse, uncomplicated; F32.A Depression, unspecified; F20.9 Schizophrenia, unspecified; Z79.899 Other long term (current) drug therapy
CPT/HCPCS: 99283